=== PATIENT | female | born 1945 | race African-American/Black ===

== ENCOUNTER 2023-07-22 17:42 | Emergency (ER) | payer MEDICARE, MEDICAID ==
[~2023-07-22] VITALS: Ht 160 cm; Wt 86.2 kg
[2023-07-22 18:11] VITALS: BP 114/64; PULSE 74; RESP 16; TEMP 97.9; O2SAT 96
[2023-07-22] MEDS: LIDOCAINE HCL/PF 1% 10 MG/ML 5ML VIAL INFIL ONE (19:45)
[2023-07-22] MEDS: TETANUS, DIPHTHERIA, PERTUSSIS VAC/PF 0.5ML (>10YR OLD) IM ONE (19:45)
[2023-07-22] MEDS: BACITRACIN ZINC OINT UDPKT TOP ONE (19:45)
[2023-07-22] MEDS: LIDOCAINE HCL/PF 1% 10 MG/ML 5ML VIAL INFIL NR (22:45)
[2023-07-22] MEDS: BACITRACIN ZINC OINT UDPKT TOP NR (22:45)
[2023-07-22] MEDS ORDERED: CEPH500T MT (22:55)
== END 2023-07-22 23:03 | disposition home or self-care (01) ==
LOC: ER 17:42
DX: S91.312A Laceration without foreign body, left foot, initial encounter (principal); E11.9 Type 2 diabetes mellitus without complications; W18.31XA Fall on same level due to stepping on an object, initial encounter; Y93.89 Activity, other specified; Y92.89 Other specified places as the place of occurrence of the external cause; Y99.8 Other external cause status
CPT/HCPCS: 99285; 12002; J3490